=== PATIENT | male | born 1985 | race Caucasian/White ===

== ENCOUNTER 2017-05-05 16:00 | Emergency (ER) | payer OTHER ==
[~2017-05-05] VITALS: Ht 172.7 cm; Wt 100.0 kg
[2017-05-05 16:05] VITALS: TEMP 98.3
[2017-05-05] MEDS ORDERED: NEXIUM 20MG20 MG PO (16:07)
[2017-05-05 16:51] LABS: BASO % 0.3 % (0.0-2.0); EOS % 0.1 % (0-4.0); GRAN # 8.5 (1.4-6.5); GRAN % 80.5 % (42.2-75.2); HEMATOCRIT 52.6 % (42.0-52.0); HEMOGLOBIN 18.2 g/dl (13.5-18.0); LYMPH # 1.4 (1.2-3.4); LYMPH % 13.4 % (20.0-51.0); MEAN CELL VOLUME 94 fl (80.0-100.0); MEAN CORPUSCULAR HEMOGLOBIN 32 pg (27.0-31.0); MEAN CORPUSCULAR HGB CONC 35 g/dl (33.0-37.0); MEAN PLATELET VOLUME 11.4 fl (7.4-10.4); MONO # 0.6 (0.1-0.6); MONO % 5.4 % (1.7-9.3); PLATELET COUNT 299 K/mm3 (130-400); RED BLOOD COUNT 5.62 M/mm3 (4.20-5.60); REDCELL DISTRIBUTION WIDTH-CV 13.2 % (11.5-14.5); WHITE BLOOD COUNT 10.5 K/mm3 (4.8-10.8)
[2017-05-05 17:36] LABS: PH 7 (5-8); SQUAMOUS EPITHELIAL None Seen /hpf; URINE APPEARANCE Cloudy; URINE BACTERIA None Seen /hpf; URINE BILIRUBIN Negative (NEGATIVE); URINE BLOOD Negative (NEGATIVE); URINE COLOR Yellow; URINE GLUCOSE Negative (NEGATIVE); URINE KETONE 1+ (NEGATIVE); URINE RBC 0-2 /hpf; URINE UROBILINOGEN Negative (NEGATIVE); URINE WBC 0-2 /hpf
[2017-05-05 17:47] LABS: INFLUENZA B NEGATIVE
[2017-05-05 17:55] LABS: ADJUSTED CALCIUM 8.9 mg/dL (8.4-10.2); ALANINE AMINOTRANSFERASE 107 U/L (21-72); ALKALINE PHOSPHATASE 38 U/L (50-136); ANION GAP 11 mmol/L (7-16); BILIRUBIN,TOTAL 0.7 mg/dL (0.0-1.0); BLOOD UREA NITROGEN 17 mg/dL (9-20); CALCIUM 8.9 mg/dL (8.4-10.2); CARBON DIOXIDE 22 mmol/L (22-30); CHLORIDE 105 mmol/L (98-107); CREATININE, serum 1.13 mg/dL (0.66-1.25); GLUCOSE 97 mg/dL (74-106); LIPASE 576 U/L (23-300); POTASSIUM 4.7 mmol/L (3.4-5.0); SODIUM 138 mmol/L (137-145)
[2017-05-05 17:58] LABS: C-REACTIVE PROTEIN < 0.5 mg/dL (0.0-0.9)
[2017-05-05] MEDS ORDERED: NORCO 325 MG-51 TAB PO (18:23)
[2017-05-05 18:52] VITALS: BP 135/81; PULSE 79
== END 2017-05-05 18:52 | disposition home or self-care (01) ==
LOC: COL.ER 16:00
PROVIDERS: Family Medicine
DX: A08.4 Viral intestinal infection, unspecified (principal); E86.0 Dehydration
CPT/HCPCS: J2270; J2405; J7030; Q9967